=== PATIENT | female | born 1990 | race Two or more races ===

== ENCOUNTER 2016-05-16 10:55 | Outpatient (CLI) | payer MEDICAID | END 2016-05-16 23:59 | DX: Z00.00 Encounter for general adult medical examination without abnormal findings (principal); E66.9 Obesity, unspecified ==

== ENCOUNTER 2017-04-17 11:58 | Emergency (ER) | payer MEDICAID ==
[2017-04-17 12:21] VITALS: BP 133/96
--- NOTE | 2017-04-17 13:08 | ED Physician Documentation ---
PD HPI URI - Stated complaint Stated Complaint: SORE THROAT,COUGH,EAR PX - Chief complaint Chief Complaint: Heent - History obtained from History obtained from: Patient - History of Present Illness Timing - onset: How many days ago (several) Timing duration: Days Timing details: Gradual onset, Still present (persists with uri symptoms and is having ear and face pain as well.) Associated symptoms: Fever, Ear pain (for 1-2 days), Sore throat, Dry cough Contributing factors: No: Sick contact, Travel, Immunocompromised Improves by: No: Medication (OTC meds) Similar symptoms before: Has not had sx before Recently seen: Not recently seen Review of Systems Constitutional: reports: Fever, Chills, Myalgias Ears: reports: Ear pain. denies: Drainage/discharge Nose: reports: Rhinorrhea / runny nose, Congestion Throat: reports: Sore throat Respiratory: reports: Cough GI: denies: Vomiting, Diarrhea Skin: denies: Rash, Lesions PD PAST MEDICAL HISTORY - Past Medical History Cardiovascular: None Respiratory: None Neuro: None Endocrine/Autoimmune: None - Past Surgical History Past Surgical History: Yes - Present Medications Home Medications: Ambulatory Orders Medication Instructions Recorded Confirmed Bcp's 09/06/14 09/06/14 Benzonatate [Tessalon] 100 mg PO TID PRN #25 capsule 04/17/17 Cephalexin [Keflex] 500 mg PO TID #20 capsule 04/17/17 Dexamethasone [Decadron] 4 mg PO DAILY #5 tablet 04/17/17 guaiFENesin/CODEINE [Robitussin AC] 10 ml PO Q6H PRN #240 ml 04/17/17 - Allergies Allergies/Adverse Reactions: Allergies Allergy/AdvReac Type Severity Reaction Status Date / Time No Known Drug Allergies Allergy Verified 08/01/14 12:48 - Social History Does the pt smoke?: Yes Smoking Status: Current every day smoker Does the pt drink ETOH?: No Does the pt have substance abuse?: No - Immunizations Immunizations are current?: Yes - POLST Patient has POLST: No PD ED PE NORMAL - Vitals Vital signs reviewed: Yes - General General: Alert and oriented X 3, No acute distress, Well developed/nourished - HEENT HEENT: No: Ears normal (right is okay. left shows redness and bulging. ), Pharynx benign (some redness posteriorly. No exudate. ) - Neck Neck: Supple, no meningeal sign, No adenopathy - Cardiac Cardiac: RRR, No murmur - Respiratory Respiratory: Clear bilaterally - Abdomen Abdomen: Soft, Non tender - Back Back: No CVA TTP - Derm Derm: Normal color, Warm and dry - Extremities Extremities: No tenderness to palpate, Normal ROM s pain - Neuro Neuro: Alert and oriented X 3, No motor deficit, Normal speech Results - Vitals Vitals: Oxygen O2 Source Room air - Labs Labs: Microbiology 04/17/17 12:17 Group A Strep Throat Culture - Preliminary Throat MIXED OROPHARYNGEAL KIRILL PRESENT. NO BETA STREP PRESENT IN CULTURE. Laboratory Tests 04/17/17 12:17 Group A Strep Rapid Negative PD MEDICAL DECISION MAKING - ED course Complexity details: considered differential (mostly URI with apparent left OM as well. ), d/w patient Departure - Departure Disposition: 01 Home, Self Care Clinical Impression: Upper respiratory infection Qualifiers: URI type: unspecified URI Qualified Code(s): J06.9 - Acute upper respiratory infection, unspecified Otitis media Qualifiers: Otitis media type: suppurative Chronicity: acute Laterality: left Recurrence: not specified as recurrent Spontaneous tympanic membrane rupture: without spontaneous rupture Qualified Code(s): H66.002 - Acute suppurative otitis media without spontaneous rupture of ear drum, left ear Condition: Stable Record reviewed to determine appropriate education?: Yes Instructions: ED Upper Resp Infec No Abx Tx, ED Otitis Media Acute Adult Prescriptions: Benzonatate [Tessalon] 100 mg PO TID PRN #25 capsule PRN Reason: Cough Cephalexin [Keflex] 500 mg PO TID #20 capsule Dexamethasone [Decadron] 4 mg PO DAILY #5 tablet guaiFENesin/CODEINE [Robitussin AC] 10 ml PO Q6H PRN #240 ml PRN Reason: Cough Comments: Drink lots of fluids. [place] in severe symptoms are likely viral. The ear infection may be bacterial instead. Use cephalexin antibiotic for at least that part of it. Use your albuterol inhaler you have at home 2 puffs 4 times a day for the next 5-7 days. Decadron is a steroid anti-inflammatory will help a lot of the symptoms and congestion. Take this daily for 5 days. Use Tessalon if needed for cough. Robitussin with codeine if needed for cough and pains. Recheck if not improving over the next few days. Discharge Date/Time: 04/17/17 13:57
[2017-04-17] MEDS ORDERED: DEXAMETHASONE 10 MG/ML VIAL PO STA (13:26)
[2017-04-17] MEDS ORDERED: BENZONATATE 100 MG CAPSULE PO STA (13:29)
[2017-04-17] MEDS ORDERED: CETIRIZINE 10 MG TABLET PO STA (13:29)
[2017-04-17] MEDS ORDERED: cephALEXin 250 MG CAPSULE PO STA (13:29)
== END 2017-04-17 13:57 | disposition home or self-care (01) ==
LOC: ED 11:58
DX: J06.9 Acute upper respiratory infection, unspecified (principal); H66.002 Acute suppurative otitis media without spontaneous rupture of ear drum, left ear; F17.200 Nicotine dependence, unspecified, uncomplicated
CPT/HCPCS: 87070; 87430; 99283; A9270

== ENCOUNTER 2017-07-02 14:01 | Outpatient (CLI) | payer MEDICAID ==
--- NOTE | 2017-07-02 15:00 | XRAY Report ---
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 FINDINGS: AP, lateral, oblique views of the bilateral wrists were obtained. The right wrist is unremarkable. The left wrist demonstrates previous screw fixation of the mid carpal row, with screws spanning scaphoid to capitellum. Old, healed distal radial fracture is noted on the left as well. Osteoarthritis of the left wrist is present. No acute fracture or hardware complication is appreciated. IMPRESSION: NORMAL RIGHT WRIST. POSTOPERATIVE AND POSTTRAUMATIC CHANGES IN THE LEFT WRIST, WITH OSTEOARTHRITIS. TD: 07/02/2017 14:50
== END 2017-07-02 14:02 | disposition home or self-care (01) ==
LOC: DI.N 14:01
PROVIDERS: ATTEND Family Medicine
DX: M92.219 Osteochondrosis (juvenile) of carpal lunate [Kienbock], unspecified hand (principal); M19.032 Primary osteoarthritis, left wrist

== ENCOUNTER 2017-10-15 17:39 | Emergency (ER) | payer MEDICAID ==
--- NOTE | 2017-10-15 19:33 | ED Physician Documentation ---
PD HPI UPPER EXT INJURY - Stated complaint Stated Complaint: LT THUMB LAC/INJ - Chief complaint Chief Complaint: Laceration - History obtained from History obtained from: Patient - History of Present Illness Location: Left, Finger (thumb) Type of injury: Laceration (broekn cup as she was cleaning it, and the edge of the ceramic cut into dorsum of thumb.) Timing - onset: Today Timing - details: Abrupt onset, Still present (slight bleeding with ROM.) Worsened by: Palpating Associated symptoms: No: Weakness, Numbness Similar symptoms before: Has not had sx before Recently seen: Not recently seen Review of Systems Skin: reports: Laceration (s) Neurologic: denies: Focal weakness, Numbness PD PAST MEDICAL HISTORY - Past Medical History Past Medical History: Yes Cardiovascular: None Respiratory: None Endocrine/Autoimmune: None - Past Surgical History Past Surgical History: Yes - Present Medications Home Medications: Ambulatory Orders Medication Instructions Recorded Confirmed Bcp's 09/06/14 09/06/14 Benzonatate [Tessalon] 100 mg PO TID PRN #25 capsule 04/17/17 Cephalexin [Keflex] 500 mg PO TID #20 capsule 04/17/17 Dexamethasone [Decadron] 4 mg PO DAILY #5 tablet 04/17/17 guaiFENesin/CODEINE [Robitussin AC] 10 ml PO Q6H PRN #240 ml 04/17/17 - Allergies Allergies/Adverse Reactions: Allergies Allergy/AdvReac Type Severity Reaction Status Date / Time No Known Drug Allergies Allergy Verified 10/15/17 18:00 - Social History Does the pt smoke?: Yes Smoking Status: Current every day smoker Does the pt drink ETOH?: No Does the pt have substance abuse?: No - Immunizations Immunizations are current?: Yes Immunizations: TDAP current <10years - POLST Patient has POLST: No PD ED PE NORMAL - Vitals Vital signs reviewed: Yes - General General: Alert and oriented X 3, No acute distress, Well developed/nourished - Derm Derm: Normal color, Warm and dry - Extremities Extremities: Other (left thumb dorsal proximal phalanx just past MCP with flap lac 1.5 cm, with slight bleeding. No FB. Down to fatty tissue but no deep structures involved. Good extension and flexion against resistance. ) - Neuro Neuro: Alert and oriented X 3, No motor deficit, No sensory deficit, Normal speech Results - Vitals Vitals: Vital Signs - 24 hr 18 10/15/17 17:53 20:24 Temperature 36.5 C 36.7 C Heart Rate 84 78 Respiratory 16 18 Rate Blood Pressure 147/86 H 144/91 H O2 Saturation 98 96 Oxygen O2 Source Room air Procedures - Laceration (location) left thumb dorsal proximal Length in cm: 1.5 Wound type: Flap, Into subcut fat, Clean Neurovascular status: Sensory intact, Motor intact Tendon involvement: Tendon intact. No: Tendon Injury Anesthesia: Lidocaine 1% with epi Wound Preparation: Wound explored, To the base, Wound edges modified. No: FB identified Skin layer closure: Nylon, Running, Size #-0 - enter number (4) Other: Patient tolerated well, No complications, Neurovascular intact, Dressing applied, Tetanus UTD Complexity: Simple PD MEDICAL DECISION MAKING - ED course Complexity details: considered differential (lac is positioned such that it will be hard to keep closed with tape/glue. Will use sutures for better use. ), d/w patient - Sepsis Event Vital Signs: Vital Signs - 24 hr 10/15/17 10/15/17 17:53 20:24 Temperature 36.5 C 36.7 C Heart Rate 84 78 Respiratory 16 18 Rate Blood Pressure 147/86 H 144/91 H O2 Saturation 98 96 Oxygen O2 Source Room air Departure - Departure Disposition: 01 Home, Self Care Clinical Impression: Laceration of left thumb Qualifiers: Encounter type: initial encounter Damage to nail status: without damage Foreign body presence: without foreign body Qualified Code(s): S61.012A - Laceration without foreign body of left thumb without damage to nail, initial encounter Condition: Stable Record reviewed to determine appropriate education?: Yes Instructions: ED Laceration Hand Follow-Up: Mike Díaz MD [Primary Care Provider] - Comments: It is okay to wash and shower. Clean off the wound twice a day with soap and water, or peroxide and water. Apply some antibiotic ointment to it to keep it moist. Also to watch for signs of infection such as purulence, redness or increasing pain. Return to your primary care or the ER at the specified time for suture removal. Tylenol or ibuprofen if needed for pains. Suture removal 8 -10 days. Forms: Activity restrictions Discharge Date/Time: 10/15/17 20:57
[2017-10-15] MEDS ORDERED: LIDOCAINE MPF 2%-EPI 1:200000 20 ML VIAL SUBQ STA (19:42)
[2017-10-15 20:25] VITALS: BP 144/91
== END 2017-10-15 20:57 | disposition home or self-care (01) ==
LOC: ED 17:39
DX: S61.012A Laceration without foreign body of left thumb without damage to nail, initial encounter (principal); W45.8XXA Other foreign body or object entering through skin, initial encounter; Y93.G1 Activity, food preparation and clean up
CPT/HCPCS: 12001; 99282; 99283